=== PATIENT | male | born 1960 ===

== ENCOUNTER 2017-08-12 19:57 | Emergency (ER) | payer BC ==
--- NOTE | 2017-08-12 20:29 | EDM.PDOC ---
ED HPI GENERAL MEDICAL PROBLEM - General Chief Complaint: Lower Extremity Injury/Pain Stated Complaint: PT HAS BLOOD CLOT IN RT LEG Time Seen by Provider: 08/12/17 20:19 - History of Present Illness INITIAL COMMENTS - FREE TEXT/NARRATIVE: HISTORY AND PHYSICAL: History of present illness: The patient is a 57-year-old male who follows in our family practice clinic and presents with complaints of pain to the anterior aspect of his knee/patella area that has been ongoing for 3 days with minimal swelling to the area and then he noticed swelling to the medial aspect of his calf this evening which concerned him for a blood clot. He said he spoke to a family member who is a nurse and she advised that he come in for evaluation. 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 He is more concerned about the swelling but denies any trauma to the area and has not taken anything for pain as he does not feel it is that bad. He has no neurosensory changes or weakness in the leg and no ankle or foot swelling/pain. He has no proximal thigh tenderness or pain and no other systemic complaints. Review of systems: As per history of present illness and below otherwise all systems reviewed and negative. Past medical history: As per history of present illness and as reviewed below otherwise noncontributory. Surgical history: As per history of present illness and as reviewed below otherwise noncontributory. Social history: No reported history of drug or alcohol abuse. Family history: As per history of present illness and as reviewed below otherwise noncontributory. Physical exam: Gen.: Well-developed well-nourished man who is nontoxic and vital signs have been reviewed by me. HEENT: Atraumatic, normocephalic, negative for conjunctival pallor or scleral icterus, mucous membranes moist, throat clear, neck supple, nontender, trachea midline. Lungs: Clear to auscultation, breath sounds equal bilaterally, chest nontender. Heart: S1S2, regular rate and rhythm no overt murmurs Abdomen: Soft, nondistended, nontender. Negative for masses or hepatosplenomegaly. NABS Pelvis: Stable nontender. Genitourinary: Deferred. Rectal: Deferred. Extremities: Atraumatic, negative for cords or calf pain. Neurovascular unremarkable. There is minimal tenderness at palpation of the infrapatellar area and there is visible callus formation on bilateral knees. In this area of soft tissue swelling/tenderness at the right patella there is no warmth or erythema and no open wounds. There is no discrete joint effusion appreciated at the knee. There is visible medial calf swelling on the right without erythema or warmth and the patient is able to dorsi and plantar flex without discomfort. Neurovascular is intact distally and proximally. There is no proximal thigh tenderness and there are no bony deformities throughout this extremity. There is no deep tenderness at palpation of the popliteal fossa and the deep calf muscle Neuro: Awake, alert, oriented. Cranial nerves II through XII unremarkable. Cerebellum unremarkable. Motor and sensory unremarkable throughout. Exam nonfocal. Diagnostics: X-ray right knee, Doppler ultrasound right leg Therapeutics: Patient declines medications Impression: Right knee and leg pain etiology unclear stable Definitive disposition and diagnosis as appropriate pending reevaluation and review of above. right lower leg Pain Score (Numeric/FACES): 6 - Related Data Allergies Allergy/AdvReac Type Severity Reaction Status Date / Time No Known Allergies Allergy Verified 08/12/17 20:12 Home Meds: Home Meds Aspirin 81 mg PO BRK 08/12/17 [History] Past Medical History HEENT History: Reports: None Cardiovascular History: Reports: None Respiratory History: Reports: None Gastrointestinal History: Reports: None Genitourinary History: Reports: None Musculoskeletal History: Reports: None Neurological History: Reports: None Psychiatric History: Reports: None Endocrine/Metabolic History: Reports: None Hematologic History: Reports: None Immunologic History: Reports: None Oncologic (Cancer) History: Reports: None Dermatologic History: Reports: None - Infectious Disease History Infectious Disease History: Reports: None - Past Surgical History Head Surgeries/Procedures: Reports: None Social & Family History - Family History Family Medical History: Noncontributory - Tobacco Use Smoking Status *Q: Never Smoker - Caffeine Use Caffeine Use: Reports: Coffee, Soda - Recreational Drug Use Recreational Drug Use: No Review of Systems - Review of Systems Review Of Systems: ROS reveals no pertinent complaints other than HPI. ED EXAM, GENERAL - Physical Exam Exam: See Below (See dictation) Course - Vital Signs Last Recorded V/S: Last Vital Signs Temp 37.1 C 08/12/17 20:12 Pulse 75 08/12/17 20:12 Resp 18 08/12/17 20:12 BP 125/80 08/12/17 20:12 Pulse Ox 96 08/12/17 20:12 - Orders/Labs/Meds Orders: Active Orders 24 hr Category Date Time Status Knee 3V Rt [CR] Stat Exams 08/12/17 20:25 Taken Venous Doppler Lwr Ext Rt [US] Stat Exams 08/12/17 20:25 Taken Departure - Departure Time of Disposition: 21:43 Disposition: Home, Self-Care 01 Condition: Good Clinical Impression: Leg pain, right Right knee pain Qualifiers: Chronicity: acute Qualified Code(s): M25.561 - Pain in right knee - Discharge Information Referrals: PCP,None [Primary Care Provider] - Forms: ED Department Discharge Additional Instructions: The following information is given to patients seen in the emergency department who are being discharged to home. This information is to outline your options for follow-up care. We provide all patients seen in our emergency department with a follow-up referral. The need for follow-up, as well as the timing and circumstances, are variable depending upon the specifics of your emergency department visit. If you don't have a primary care physician on staff, we will provide you with a referral. We always advise you to contact your personal physician following an emergency department visit to inform them of the circumstance of the visit and for follow-up with them and/or the need for any referrals to a consulting specialist. The emergency department will also refer you to a specialist when appropriate. This referral assures that you have the opportunity for followup care with a specialist. All of these measure are taken in an effort to provide you with optimal care, which includes your followup. Under all circumstances we always encourage you to contact your private physician who remains a resource for coordinating your care. When calling for followup care, please make the office aware that this follow-up is from your recent emergency room visit. If for any reason you are refused follow-up, please contact the [facility] emergency department at and ask to speak to the emergency department charge nurse. [facility] Primary care- Internal Medicine and Family [address] [address] [facility] Specialty Care--Orthopedic clinic [address] [place] [id number] Ice and elevate the area and use [id number] ibuprofen/Motrin for pain and inflammation. Please call and follow-up in the clinic in the next few days to have reevaluation and further care as needed. Return to ER as needed and as discussed. - My Orders Last 24 Hours: My Active Orders 08/12/17 20:25 Knee 3V Rt [CR] Stat Venous Doppler Lwr Ext Rt [US] Stat - Assessment/Plan Last 24 Hours: My Active Orders 08/12/17 20:25 Knee 3V Rt [CR] Stat Venous Doppler Lwr Ext Rt [US] Stat
--- NOTE | 2017-08-13 10:14 | CR ---
EXAM DATE: 08/12/17 PATIENT'S AGE: 57 Patient: RADHA GARCIA Facility: [place], [place] Site . Site : 1960 Study: XRay Knee Right [id number]/9/2018 8:50:26 PM Ordering Physician: Jud Cardoso Final Report: HISTORY: No pain. Possible blood clot. FINDINGS: AP, lateral and sunrise views of the right knee demonstrates maintenance of the joint spaces. No joint effusion, fracture or dislocation is seen. IMPRESSION: No bony abnormality within the right knee. Dictated by Ruby Londono MD @ 08/12/2017 9:04:44 PM Dictated by: Ruby Londono MD @ 08/12/2017 21:05:52 (Electronic Signature) Report Signed by Proxy. [email or web address]
--- NOTE | 2017-08-14 10:35 | US ---
EXAM DATE: 08/12/17 PATIENT'S AGE: 57 Patient: RADHA GARCIA Facility: [facility] Site . Site : 1960 Study: US-Extremity Right -08/12/2017 9:04:56 PM Ordering Physician: Jud Cardoso Final Report: CORRECTED REPORT FOR VOICE TO TEXT DICTATION ERROR IN IMPRESSION INDICATION: Pain. TECHNIQUE: Ultrasound venous duplex lower right extremity. Compression venous exam was performed using forde-scale, color Doppler, and spectral Doppler imaging. COMPARISON: None. FINDINGS: Sonographic imaging demonstrates the right common femoral, deep femoral, superficial femoral, popliteal, posterior tibial and greater saphenous and the contralateral left common femoral veins to be fully compressible with normal color Doppler blood flow. No Medina`s or popliteal cyst is identified. IMPRESSION: NO EVIDENCE OF DEEP thrombosis within the right lower extremity. Dictated by Ruby Londono MD @ 08/12/2017 9:12:19 PM Prelim Report By Dr. Ruby Londono @ 08/12/2017 9:12:25 PM Dictated by: Ruby Londono MD @ 08/12/2017 21:31:52 Signed by: Ruby Londono MD @ 08/12/2017 9:31:52 PM (Electronic Signature) Signed by: Ruby Londono MD @08/13/2017 11:06:03 PM (Electronic Signature) Report Signed by Proxy. ANNA
== END 2017-08-12 23:36 | disposition home or self-care (01) ==
LOC: MW.ED 19:57
DX: M25.561 Pain in right knee (principal); M79.661 Pain in right lower leg; M79.89 Other specified soft tissue disorders; Z79.82 Long term (current) use of aspirin
CPT/HCPCS: 73562-26-RT; 73562-RT; 93971-26-RT; 93971-RT; 99283; 99284-25